=== PATIENT | female | born 1970 | race Caucasian/White ===

== ENCOUNTER 2017-01-05 17:14 | Inpatient (IN) | payer OTHER ==
[~2017-01-05] VITALS: Ht 162.5 cm; Wt 111.7 kg
--- NOTE | ~2017-01-05 | EKG ---
[place], [place] ELECTROCARDIOGRAM REPORT NAME: DOE SMITH UNIT #: [id number] ROOM: 408 DOCTOR: AMOS FAIRCHILD MD BIRTHDATE: [birth year] DOS: 01/05/2017 TIME: 1807. FINDINGS: 1. Normal sinus rhythm at rate of 83. 2. Possible old anteroseptal myocardial infarction. 3. Abnormal electrocardiogram. AMOS FAIRCHILD MD CM:EKGRPT:ELECTROCARDIOGRAM REPORT [id number] AMOS FAIRCHILD MD
[~2017-01-05 17:14] MED LIST: ACETAMINOPHEN-O1 TAB PO; ALPRAZOLAM0.5 M3 PO; BIOTENE MOIST44.3 ML PO; CIPRO500 MG PO; CLARITIN10 MG PO; COMBI V; CONSTULOSE10 GM/151 PO; FERROUS SULFAT325 MG PO; FLAGYL500 MG PO; HUMALOG MI100 UNIT/1 SC; LACTULOSE20 GM/30 M PO; LISINOPRIL20 MG PO; MICONAZOLE V; NORTRIPTYLINE H25 M1 PO; Nizoral 2%15 GM T; OXYCODONE HCL5 MG PO; PANTOPRAZOLE SO40 MG PO; PROPRANOLOL HCL10 MG PO; PROPRANOLOL HYD10 MG PO; PROTONIX40 MG PO; XANAX0.5 MG PO; XIFAXAN550 MG PO
[2017-01-05 17:20] VITALS: BP 165/100
[2017-01-05 18:18] LABS: BILIRUBIN NEGATIVE (NEGATIVE); BLOOD 3+ (NEGATIVE); CLARITY SL CLOUDY (CLEAR); COLOR YELLOW (YELLOW); GLUCOSE 3+ (NEGATIVE); KETONE NEGATIVE (NEGATIVE); LEUKO ESTERASE NEGATIVE (NEGATIVE); NITRITE NEGATIVE (NEGATIVE); PROTEIN NEGATIVE (NEGATIVE); SPECIFIC GRAVITY <= 1.005 (1.005-1.030)
[2017-01-05 18:31] LABS: BASO % 0.5 % (0.0-1.0); EOS # 0.1 10*3/uL (0.0-0.4); EOS % 2.2 % (1.0-4.0); HEMATOCRIT 43.1 % (37.0-47.0); HEMOGLOBIN 14.8 g/dl (12.0-16.0); LYMPH # 1.3 10*3/uL (1.3-4.4); LYMPH % 32.6 % (27.0-41.0); MEAN CELL VOLUME 100.9 fl (81.0-99.0); MEAN CORPUSCULAR HGB 34.7 pg (27.0-31.0); MEAN CORPUSCULAR HGB CONC 34.3 g/dl (33.0-37.0); MEAN PLATELET VOLUME 9.5 fl (9.6-12.3); MONO # 0.4 10*3/uL (0.1-1.0); MONO % 9.9 % (3.0-9.0); NEUT # 2.2 10*3/uL (2.3-7.9); NEUT % 54.3 % (47.0-73.0); PLATELET COUNT AUTOMATED 70 10*3/uL (130-400); RED BLOOD COUNT 4.27 10*6/uL (4.10-5.10); RED CELL DISTRI WIDTH 14.1 % (0-14.5); WHITE BLOOD COUNT 4.1 10*3/uL (4.8-10.8)
[2017-01-05 18:43] LABS: INTERNATIONAL NORM RATIO 1.2 (2.0-3.5); PROTHROMBIN TIME 13.2 SECONDS (9.0-12.4)
[2017-01-05 18:47] LABS: BACTERIA 1+; RBC 31-40 rbc/hpf (0-2); URINE REFLEX COMMENT YES (NO); WBC 0-2 wbc/hpf (0-5)
[2017-01-05 18:58] LABS: ALBUMIN 2.4 gm/dl (3.1-4.5); ALKALINE PHOSPHATASE 151 U/L (45-117); BILIRUBIN, TOTAL 2.2 mg/dl (0.2-1.0); BUN 4 mg/dl (7-24); C-REACTIVE PROTEIN 0.65 MG/DL (0-0.3); CARBON DIOXIDE 19 mmol/L (21-32); CHLORIDE 110 mmol/L (98-107); CPK 63 U/L (26-192); EST GLOM FILT AFRICAN AMERICAN > 60 ml/min; GLUCOSE 397 mg/dL (65-99); MAGNESIUM 1.8 mg/dL (1.5-2.1); POTASSIUM 4.3 mmol/L (3.5-5.1); SGOT/AST 36 IU/L (3-35); SGPT/ALT 24 U/L (12-78); SODIUM 139 mmol/L (136-145); TOTAL PROTEIN 6.6 gm/dL (6.4-8.2)
[2017-01-05 18:59] LABS: TROPONIN I < 0.015 ng/ml (<0.045)
[2017-01-05 19:26] VITALS: BP 144/64
[2017-01-05 19:56] VITALS: BP 146/83
[2017-01-05 20:28] LABS: LA>2 REFLEX 2 HR DRAW NOW
[2017-01-05 20:47] VITALS: BP 160/92
[2017-01-05 20:47] LABS: LA>2 RFLX FOLLOW UP AT 2 HRS 2.5 mmol/L (0.4-2.0)
[2017-01-05] MEDS ORDERED: FLUOXETINE HCL20 M2 PO (21:09)
[2017-01-05] MEDS ORDERED: LANTUS100 U/ML SC (21:11)
[2017-01-05 22:00] VITALS: BP 160/90
[2017-01-05 22:41] LABS: LA>2 REFLEX 4 HR DRAW NOW
[2017-01-06] VITALS: BP 153/86
[2017-01-06 00:20] LABS: CKMB 0.9 ng/ml (0.5-3.6); CPK 77 U/L (26-192)
[2017-01-06 00:23] LABS: TROPONIN I < 0.015 ng/ml (<0.045)
[2017-01-06 06:15] LABS: BASO % 0.8 % (0.0-1.0); EOS # 0.1 10*3/uL (0.0-0.4); HEMATOCRIT 38.8 % (37.0-47.0); HEMOGLOBIN 13.4 g/dl (12.0-16.0); LYMPH # 1.5 10*3/uL (1.3-4.4); LYMPH % 41.6 % (27.0-41.0); MEAN CELL VOLUME 101.6 fl (81.0-99.0); MEAN CORPUSCULAR HGB 35.1 pg (27.0-31.0); MEAN CORPUSCULAR HGB CONC 34.5 g/dl (33.0-37.0); MEAN PLATELET VOLUME 9.4 fl (9.6-12.3); MONO # 0.4 10*3/uL (0.1-1.0); MONO % 11.6 % (3.0-9.0); NEUT # 1.6 10*3/uL (2.3-7.9); PLATELET COUNT AUTOMATED 82 10*3/uL (130-400); RED BLOOD COUNT 3.82 10*6/uL (4.10-5.10); RED CELL DISTRI WIDTH 14.3 % (0-14.5); WHITE BLOOD COUNT 3.7 10*3/uL (4.8-10.8)
[2017-01-06 06:23] LABS: CPK 62 U/L (26-192)
[2017-01-06 06:24] LABS: TROPONIN I < 0.015 ng/ml (<0.045)
[2017-01-06 06:47] LABS: BUN 4 mg/dl (7-24); CARBON DIOXIDE 23 mmol/L (21-32); CHLORIDE 115 mmol/L (98-107); CHOLESTEROL 133 mg/dL (<200); EST GLOM FILT AFRICAN AMERICAN > 60 ml/min; GLUCOSE 144 mg/dL (65-99); HEMOGLOBIN A1c 8.3 % (4.8-5.6); INTERNATIONAL NORM RATIO 1.2 (2.0-3.5); MAGNESIUM 1.6 mg/dL (1.5-2.1); PHOSPHOROUS 1.8 mg/dL (2.5-4.9); PROTHROMBIN TIME 13.2 SECONDS (9.0-12.4); SODIUM 145 mmol/L (136-145); TRIGLYCERIDES 96 mg/dl (<150); VLDL CHOLESTEROL 19 mg/dL (6-40)
[2017-01-06 06:54] LABS: FOLIC ACID 8.03 ng/mL (>5.38)
[2017-01-06 06:57] LABS: FREE T4 0.83 ng/dl (0.76-1.46); HDL CHOLESTEROL 53 mg/dl (40-60); LDL CHOLESTEROL 61 mg/dL (9-159)
[2017-01-06 07:01] LABS: POTASSIUM 3.1 mmol/L (3.5-5.1)
[2017-01-06 08:00] VITALS: BP 154/82
[2017-01-06 12:00] VITALS: BP 156/89
[2017-01-06 12:11] LABS: CKMB 1.1 ng/ml (0.5-3.6); CPK 63 U/L (26-192); TROPONIN I < 0.015 ng/ml (<0.045)
[2017-01-06 16:00] VITALS: BP 147/83
== END 2017-01-06 17:00 | disposition home or self-care (01) | DRG 441 ==
LOC: ED 17:14 → EDHOLD 19:07 → 4E 19:07
PROVIDERS: Student in an Organized Health Care Education/Training Program
DX: K72.90 Hepatic failure, unspecified without coma (principal); E43 Unspecified severe protein-calorie malnutrition; E87.2 Acidosis; E72.20 Disorder of urea cycle metabolism, unspecified; D69.6 Thrombocytopenia, unspecified; E11.65 Type 2 diabetes mellitus with hyperglycemia; Z68.41 Body mass index [BMI] 40.0-44.9, adult; K25.9 Gastric ulcer, unspecified as acute or chronic, without hemorrhage or perforation; D75.89 Other specified diseases of blood and blood-forming organs; D72.819 Decreased white blood cell count, unspecified; K74.69 Other cirrhosis of liver; F41.9 Anxiety disorder, unspecified; K21.9 Gastro-esophageal reflux disease without esophagitis; E87.6 Hypokalemia; E83.39 Other disorders of phosphorus metabolism; E66.9 Obesity, unspecified; F17.210 Nicotine dependence, cigarettes, uncomplicated; Z83.49 Family history of other endocrine, nutritional and metabolic diseases; Z83.6 Family history of other diseases of the respiratory system; Z88.6 Allergy status to analgesic agent; Z79.899 Other long term (current) drug therapy; Z79.4 Long term (current) use of insulin

== ENCOUNTER 2017-02-09 16:33 | Inpatient (IN) | payer OTHER ==
[~2017-02-09] VITALS: Ht 162.5 cm; Wt 117.1 kg
[~2017-02-09 16:33] MED LIST changes: +FLUOXETINE HCL20 M2 PO; +LANTUS100 U/ML SC
[2017-02-09 16:36] VITALS: BP 185/90
[2017-02-09 17:16] LABS: BASO % 0.8 % (0.0-1.0); EOS # 0.1 10*3/uL (0.0-0.4); EOS % 1.5 % (1.0-4.0); HEMATOCRIT 39.3 % (37.0-47.0); HEMOGLOBIN 13.5 g/dl (12.0-16.0); LYMPH # 1.5 10*3/uL (1.3-4.4); LYMPH % 28.7 % (27.0-41.0); MEAN CELL VOLUME 101.6 fl (81.0-99.0); MEAN CORPUSCULAR HGB 34.9 pg (27.0-31.0); MEAN CORPUSCULAR HGB CONC 34.4 g/dl (33.0-37.0); MEAN PLATELET VOLUME 9.2 fl (9.6-12.3); MONO # 0.5 10*3/uL (0.1-1.0); NEUT # 3.1 10*3/uL (2.3-7.9); NEUT % 58.4 % (47.0-73.0); PLATELET COUNT AUTOMATED 107 10*3/uL (130-400); RED BLOOD COUNT 3.87 10*6/uL (4.10-5.10); RED CELL DISTRI WIDTH 14.6 % (0-14.5); WHITE BLOOD COUNT 5.3 10*3/uL (4.8-10.8)
[2017-02-09 17:31] LABS: ALBUMIN 2.4 gm/dl (3.1-4.5); ALKALINE PHOSPHATASE 154 U/L (45-117); BILIRUBIN, TOTAL 1.7 mg/dl (0.2-1.0); BUN 8 mg/dl (7-24); C-REACTIVE PROTEIN 1.11 MG/DL (0-0.3); CARBON DIOXIDE 23 mmol/L (21-32); CHLORIDE 111 mmol/L (98-107); CPK 133 U/L (26-192); EST GLOM FILT AFRICAN AMERICAN > 60 ml/min; GLUCOSE 189 mg/dL (65-99); MAGNESIUM 1.8 mg/dL (1.5-2.1); POTASSIUM 4.3 mmol/L (3.5-5.1); SGOT/AST 54 IU/L (3-35); SGPT/ALT 29 U/L (12-78); SODIUM 143 mmol/L (136-145); TOTAL PROTEIN 6.7 gm/dL (6.4-8.2)
[2017-02-09 17:32] LABS: TROPONIN I < 0.015 ng/ml (<0.045)
[2017-02-09 17:36] LABS: INTERNATIONAL NORM RATIO 1.2 (2.0-3.5); PROTHROMBIN TIME 12.5 SECONDS (9.0-12.4)
[2017-02-09 19:13] LABS: LA>2 REFLEX 2 HR DRAW NOW
[2017-02-09 19:34] LABS: LA>2 RFLX FOLLOW UP AT 2 HRS 2.1 mmol/L (0.4-2.0)
[2017-02-09 20:00] VITALS: BP 158/92
[2017-02-09 21:29] LABS: LA>2 REFLEX 4 HR DRAW NOW
[2017-02-10] VITALS: BP 159/98
[2017-02-10 06:14] LABS: BASO # 0.1 10*3/uL (0.0-0.1); BASO % 0.9 % (0.0-1.0); EOS # 0.3 10*3/uL (0.0-0.4); EOS % 3.9 % (1.0-4.0); HEMATOCRIT 35.6 % (37.0-47.0); HEMOGLOBIN 12.3 g/dl (12.0-16.0); LYMPH # 2.4 10*3/uL (1.3-4.4); LYMPH % 34.1 % (27.0-41.0); MEAN CELL VOLUME 101.4 fl (81.0-99.0); MEAN CORPUSCULAR HGB CONC 34.6 g/dl (33.0-37.0); MEAN PLATELET VOLUME 8.8 fl (9.6-12.3); MONO # 0.9 10*3/uL (0.1-1.0); MONO % 12.8 % (3.0-9.0); NEUT # 3.3 10*3/uL (2.3-7.9); NEUT % 47.9 % (47.0-73.0); PLATELET COUNT AUTOMATED 113 10*3/uL (130-400); RED BLOOD COUNT 3.51 10*6/uL (4.10-5.10); RED CELL DISTRI WIDTH 14.7 % (0-14.5)
[2017-02-10 06:37] LABS: BUN 7 mg/dl (7-24); CARBON DIOXIDE 25 mmol/L (21-32); CHLORIDE 118 mmol/L (98-107); EST GLOM FILT AFRICAN AMERICAN > 60 ml/min; GLUCOSE 72 mg/dL (65-99); MAGNESIUM 1.6 mg/dL (1.5-2.1); SODIUM 147 mmol/L (136-145)
[2017-02-10 08:00] VITALS: BP 151/85
[2017-02-10 12:00] VITALS: BP 156/98
[2017-02-10 17:02] VITALS: BP 136/67
[2017-02-10 20:36] VITALS: BP 144/72
[2017-02-11] VITALS: BP 130/62
[2017-02-11 06:17] LABS: BASO # 0.1 10*3/uL (0.0-0.1); BASO % 0.6 % (0.0-1.0); EOS # 0.3 10*3/uL (0.0-0.4); HEMATOCRIT 38.3 % (37.0-47.0); LYMPH # 3.2 10*3/uL (1.3-4.4); LYMPH % 37.5 % (27.0-41.0); MEAN CELL VOLUME 102.7 fl (81.0-99.0); MEAN CORPUSCULAR HGB 34.9 pg (27.0-31.0); MEAN CORPUSCULAR HGB CONC 33.9 g/dl (33.0-37.0); MEAN PLATELET VOLUME 8.8 fl (9.6-12.3); MONO % 11.3 % (3.0-9.0); NEUT # 3.9 10*3/uL (2.3-7.9); NEUT % 46.1 % (47.0-73.0); PLATELET COUNT AUTOMATED 124 10*3/uL (130-400); RED BLOOD COUNT 3.73 10*6/uL (4.10-5.10); RED CELL DISTRI WIDTH 15.2 % (0-14.5); WHITE BLOOD COUNT 8.4 10*3/uL (4.8-10.8)
[2017-02-11 06:25] LABS: ALBUMIN 2.3 gm/dl (3.1-4.5); ALKALINE PHOSPHATASE 139 U/L (45-117); BILIRUBIN, TOTAL 1.7 mg/dl (0.2-1.0); BUN 10 mg/dl (7-24); CARBON DIOXIDE 23 mmol/L (21-32); CHLORIDE 115 mmol/L (98-107); EST GLOM FILT AFRICAN AMERICAN > 60 ml/min; GLUCOSE 55 mg/dL (65-99); POTASSIUM 2.8 mmol/L (3.5-5.1); SGOT/AST 40 IU/L (3-35); SGPT/ALT 26 U/L (12-78); SODIUM 145 mmol/L (136-145); TOTAL PROTEIN 6.7 gm/dL (6.4-8.2)
[2017-02-11 08:00] VITALS: BP 144/80
[2017-02-11 11:42] LABS: BILIRUBIN NEGATIVE (NEGATIVE); BLOOD 3+ (NEGATIVE); CLARITY CLEAR (CLEAR); COLOR YELLOW (YELLOW); GLUCOSE TRACE (NEGATIVE); KETONE TRACE (NEGATIVE); LEUKO ESTERASE NEGATIVE (NEGATIVE); NITRITE NEGATIVE (NEGATIVE); PH 5.5 (5.0-9.0); PROTEIN 1+ (NEGATIVE); SPECIFIC GRAVITY 1.025 (1.005-1.030); UROBILINOGEN 0.2 E.U./dl (0.2-1.0)
[2017-02-11 12:00] VITALS: BP 149/88
[2017-02-11 12:03] LABS: BACTERIA 1+; RBC TNTC rbc/hpf (0-2); URINE REFLEX COMMENT YES (NO); WBC 0-2 wbc/hpf (0-5)
[2017-02-11 16:00] VITALS: BP 148/93
== END 2017-02-11 17:31 | disposition home or self-care (01) | DRG 441 ==
LOC: ED 16:33 → 5E 18:02 → EDHOLD 18:02 → 5E 19:28
PROVIDERS: Emergency Medicine; Internal Medicine
DX: K72.90 Hepatic failure, unspecified without coma (principal); E43 Unspecified severe protein-calorie malnutrition; E87.2 Acidosis; E87.0 Hyperosmolality and hypernatremia; D69.6 Thrombocytopenia, unspecified; K76.6 Portal hypertension; E11.65 Type 2 diabetes mellitus with hyperglycemia; Z68.41 Body mass index [BMI] 40.0-44.9, adult; K74.69 Other cirrhosis of liver; E66.01 Morbid (severe) obesity due to excess calories; E83.39 Other disorders of phosphorus metabolism; F41.9 Anxiety disorder, unspecified; K21.9 Gastro-esophageal reflux disease without esophagitis; Z87.442 Personal history of urinary calculi; F17.210 Nicotine dependence, cigarettes, uncomplicated; Z88.8 Allergy status to other drugs, medicaments and biological substances; D75.89 Other specified diseases of blood and blood-forming organs; R74.0 Nonspecific elevation of levels of transaminase and lactic acid dehydrogenase [LDH]; R79.82 Elevated C-reactive protein (CRP)

== ENCOUNTER 2017-04-05 21:54 | Inpatient (IN) | payer OTHER ==
[~2017-04-05] VITALS: Ht 162.6 cm; Wt 110.5 kg
[2017-04-05 22:04] VITALS: BP 137/74
[2017-04-05 22:44] LABS: BASO % 0.7 % (0.0-1.0); EOS # 0.1 10*3/uL (0.0-0.4); EOS % 2.6 % (1.0-4.0); HEMATOCRIT 40.9 % (37.0-47.0); HEMOGLOBIN 13.8 g/dl (12.0-16.0); LYMPH # 1.5 10*3/uL (1.3-4.4); LYMPH % 34.8 % (27.0-41.0); MEAN CELL VOLUME 101.2 fl (81.0-99.0); MEAN CORPUSCULAR HGB 34.2 pg (27.0-31.0); MEAN CORPUSCULAR HGB CONC 33.7 g/dl (33.0-37.0); MEAN PLATELET VOLUME 8.9 fl (9.6-12.3); MONO # 0.5 10*3/uL (0.1-1.0); MONO % 12.4 % (3.0-9.0); NEUT # 2.1 10*3/uL (2.3-7.9); NEUT % 49.3 % (47.0-73.0); PLATELET COUNT AUTOMATED 81 10*3/uL (130-400); RED BLOOD COUNT 4.04 10*6/uL (4.10-5.10); RED CELL DISTRI WIDTH 13.7 % (0-14.5); WHITE BLOOD COUNT 4.2 10*3/uL (4.8-10.8)
[2017-04-05 22:57] LABS: BUN 6 mg/dl (7-24); CARBON DIOXIDE 22 mmol/L (21-32); CHLORIDE 111 mmol/L (98-107); EST GLOM FILT AFRICAN AMERICAN > 60 ml/min; GLUCOSE 186 mg/dL (65-99); POTASSIUM 3.5 mmol/L (3.5-5.1); SODIUM 141 mmol/L (136-145)
[2017-04-05 22:58] LABS: C-REACTIVE PROTEIN 0.68 MG/DL (0-0.3)
[2017-04-05 23:01] VITALS: BP 140/57
[2017-04-05 23:10] LABS: BILIRUBIN NEGATIVE (NEGATIVE); BLOOD TRACE-LYSED (NEGATIVE); CLARITY CLEAR (CLEAR); COLOR YELLOW (YELLOW); GLUCOSE 3+ (NEGATIVE); KETONE NEGATIVE (NEGATIVE); LEUKO ESTERASE NEGATIVE (NEGATIVE); NITRITE NEGATIVE (NEGATIVE); PROTEIN NEGATIVE (NEGATIVE)
[2017-04-05 23:21] LABS: BACTERIA 4+; EPITHELIAL CELLS 15-20; RBC 0-2 rbc/hpf (0-2); URINE REFLEX COMMENT YES (NO)
[2017-04-06] VITALS (8 sets, daily range): BP systolic 124–166; BP diastolic 63–99
[2017-04-06 06:09] LABS: ALKALINE PHOSPHATASE 120 U/L (45-117); BILIRUBIN, TOTAL 2.2 mg/dl (0.2-1.0); BUN 5 mg/dl (7-24); CARBON DIOXIDE 22 mmol/L (21-32); CHLORIDE 114 mmol/L (98-107); CHOLESTEROL 133 mg/dL (<200); EST GLOM FILT AFRICAN AMERICAN > 60 ml/min; GLUCOSE 121 mg/dL (65-99); HDL CHOLESTEROL 54 mg/dl (40-60); LDL CHOLESTEROL 64 mg/dL (9-159); MAGNESIUM 1.4 mg/dL (1.5-2.1); POTASSIUM 3.2 mmol/L (3.5-5.1); SGOT/AST 29 IU/L (3-35); SGPT/ALT 21 U/L (12-78); SODIUM 145 mmol/L (136-145); TOTAL PROTEIN 5.9 gm/dL (6.4-8.2); TRIGLYCERIDES 76 mg/dl (<150); VLDL CHOLESTEROL 15 mg/dL (6-40)
[2017-04-06 06:10] LABS: BASO % 0.3 % (0.0-1.0); EOS # 0.1 10*3/uL (0.0-0.4); EOS % 4.3 % (1.0-4.0); HEMATOCRIT 36.1 % (37.0-47.0); HEMOGLOBIN 12.2 g/dl (12.0-16.0); LYMPH # 1.4 10*3/uL (1.3-4.4); LYMPH % 42.4 % (27.0-41.0); MEAN CELL VOLUME 100.6 fl (81.0-99.0); MEAN CORPUSCULAR HGB CONC 33.8 g/dl (33.0-37.0); MEAN PLATELET VOLUME 9.5 fl (9.6-12.3); MONO # 0.4 10*3/uL (0.1-1.0); MONO % 10.8 % (3.0-9.0); NEUT # 1.4 10*3/uL (2.3-7.9); NEUT % 42.2 % (47.0-73.0); PLATELET COUNT AUTOMATED 74 10*3/uL (130-400); RED BLOOD COUNT 3.59 10*6/uL (4.10-5.10); RED CELL DISTRI WIDTH 13.5 % (0-14.5); WHITE BLOOD COUNT 3.2 10*3/uL (4.8-10.8)
[2017-04-06 06:11] LABS: FREE T4 0.95 ng/dl (0.76-1.46)
[2017-04-06 06:11] LABS: HEMOGLOBIN A1c 7.7 % (4.8-5.6)
[2017-04-06 06:29] LABS: INTERNATIONAL NORM RATIO 1.4 (2.0-3.5); PROTHROMBIN TIME 14.8 SECONDS (9.0-12.4)
[2017-04-06 07:02] LABS: FOLIC ACID 5.8 ng/mL (>5.38); VITAMIN D, 25-HYDROXY 11.4 ng/mL (30-100)
[2017-04-06] MEDS ORDERED: OXYCODONE HCL5 MG PO (11:55)
[2017-04-06] MEDS ORDERED: LASIX40 MG PO (11:55)
[2017-04-06] MEDS ORDERED: SPIRONOLACTONE50 M1 PO (11:56)
[2017-04-07] VITALS: BP 123/75
[2017-04-07 06:25] LABS: BASO % 0.6 % (0.0-1.0); EOS # 0.2 10*3/uL (0.0-0.4); EOS % 5.3 % (1.0-4.0); HEMATOCRIT 35.4 % (37.0-47.0); HEMOGLOBIN 11.7 g/dl (12.0-16.0); LYMPH # 1.3 10*3/uL (1.3-4.4); MEAN CELL VOLUME 101.7 fl (81.0-99.0); MEAN CORPUSCULAR HGB 33.6 pg (27.0-31.0); MEAN CORPUSCULAR HGB CONC 33.1 g/dl (33.0-37.0); MEAN PLATELET VOLUME 9.9 fl (9.6-12.3); MONO # 0.4 10*3/uL (0.1-1.0); NEUT # 1.4 10*3/uL (2.3-7.9); NEUT % 41.8 % (47.0-73.0); PLATELET COUNT AUTOMATED 72 10*3/uL (130-400); RED BLOOD COUNT 3.48 10*6/uL (4.10-5.10); RED CELL DISTRI WIDTH 14.2 % (0-14.5); WHITE BLOOD COUNT 3.2 10*3/uL (4.8-10.8)
[2017-04-07 06:44] LABS: BUN 9 mg/dl (7-24); CARBON DIOXIDE 23 mmol/L (21-32); CHLORIDE 111 mmol/L (98-107); EST GLOM FILT AFRICAN AMERICAN > 60 ml/min; GLUCOSE 230 mg/dL (65-99); POTASSIUM 3.6 mmol/L (3.5-5.1); SODIUM 143 mmol/L (136-145)
[2017-04-07 06:53] LABS: INTERNATIONAL NORM RATIO 1.3 (2.0-3.5); PROTHROMBIN TIME 14.3 SECONDS (9.0-12.4)
[2017-04-07 08:00] VITALS: BP 134/70
[2017-04-07] MEDS ORDERED: LACTULOSE20 GM/30 M PO (11:24)
[2017-04-07 12:00] VITALS: BP 155/95
== END 2017-04-07 14:17 | disposition home or self-care (01) | DRG 441 ==
LOC: ED 21:54 → 5E 04-06 00:02
PROVIDERS: Emergency Medicine Emergency Medical Services; Internal Medicine; Internal Medicine Hospice and Palliative Medicine
DX: K72.00 Acute and subacute hepatic failure without coma (principal); E43 Unspecified severe protein-calorie malnutrition; D61.818 Other pancytopenia; D69.6 Thrombocytopenia, unspecified; E72.20 Disorder of urea cycle metabolism, unspecified; K76.6 Portal hypertension; E11.65 Type 2 diabetes mellitus with hyperglycemia; Z68.41 Body mass index [BMI] 40.0-44.9, adult; E83.42 Hypomagnesemia; E66.01 Morbid (severe) obesity due to excess calories; K74.69 Other cirrhosis of liver; K21.9 Gastro-esophageal reflux disease without esophagitis; F17.200 Nicotine dependence, unspecified, uncomplicated; D75.89 Other specified diseases of blood and blood-forming organs; F41.1 Generalized anxiety disorder; E87.6 Hypokalemia; E83.39 Other disorders of phosphorus metabolism; Z90.49 Acquired absence of other specified parts of digestive tract; Z88.6 Allergy status to analgesic agent; Z83.79 Family history of other diseases of the digestive system; Z79.4 Long term (current) use of insulin; Z79.899 Other long term (current) drug therapy; Z79.1 Long term (current) use of non-steroidal anti-inflammatories (NSAID)

== ENCOUNTER 2017-08-07 15:01 | Inpatient (IN) | payer OTHER ==
[~2017-08-07] VITALS: Ht 165.1 cm; Wt 103.1 kg
[~2017-08-07 15:01] MED LIST changes: +LASIX40 MG PO; +SPIRONOLACTONE50 M1 PO
[2017-08-07 15:07] VITALS: BP 146/80
[2017-08-07 15:36] VITALS: BP 171/72
[2017-08-07 15:37] LABS: BILIRUBIN NEGATIVE (NEGATIVE); BLOOD TRACE-INTACT (NEGATIVE); CLARITY CLEAR (CLEAR); COLOR YELLOW (YELLOW); GLUCOSE 3+ (NEGATIVE); KETONE 1+ (NEGATIVE); LEUKO ESTERASE NEGATIVE (NEGATIVE); NITRITE NEGATIVE (NEGATIVE); PH 6.5 (5.0-9.0); SPECIFIC GRAVITY 1.015 (1.005-1.030); UROBILINOGEN >= 8.0 E.U./dl (0.2-1.0)
[2017-08-07 16:20] LABS: BASO # 0.1 10*3/uL (0.0-0.1); BASO % 1.6 % (0.0-1.0); EOS # 0.2 10*3/uL (0.0-0.4); EOS % 3.6 % (1.0-4.0); HEMATOCRIT 41.5 % (37.0-47.0); HEMOGLOBIN 14.2 g/dl (12.0-16.0); LYMPH # 1.7 10*3/uL (1.3-4.4); MEAN CORPUSCULAR HGB 34.9 pg (27.0-31.0); MEAN CORPUSCULAR HGB CONC 34.2 g/dl (33.0-37.0); MEAN PLATELET VOLUME 9.7 fl (9.6-12.3); MONO # 0.5 10*3/uL (0.1-1.0); MONO % 10.5 % (3.0-9.0); NEUT # 2.5 10*3/uL (2.3-7.9); NEUT % 50.1 % (47.0-73.0); PLATELET COUNT AUTOMATED 115 10*3/uL (130-400); RED BLOOD COUNT 4.07 10*6/uL (4.10-5.10); RED CELL DISTRI WIDTH 15.3 % (0-14.5)
[2017-08-07 16:28] LABS: ACT PARTIAL THROMBO TIME 23.4 SECONDS (20.8-31.5); INTERNATIONAL NORM RATIO 1.2 (2.0-3.5)
[2017-08-07] MEDS ORDERED: NORTRIPTYLINE H25 M1 PO (16:32)
[2017-08-07] MEDS ORDERED: GOOD NEIGHBOR L10 MG PO (16:33)
[2017-08-07 16:37] VITALS: BP 162/90
[2017-08-07 16:37] LABS: ALBUMIN 2.7 gm/dl (3.1-4.5); BUN 9 mg/dl (7-24); CHLORIDE 113 mmol/L (98-107); CREATININE 0.64 mg/dL (0.55-1.02); POTASSIUM 4.4 mmol/L (3.5-5.1); SGOT/AST 45 IU/L (3-35); SGPT/ALT 37 U/L (12-78); SODIUM 143 mmol/L (136-145); TOTAL PROTEIN 8.1 gm/dL (6.4-8.2)
--- NOTE | 2017-08-07 16:38 | NUR ---
MEDICATIONS WERE VERIFIED THROUGH PT'S PHARMACY
--- NOTE | 2017-08-07 16:38 | NUR ---
REMAINS DISORIENTED TO PLACE AND TIME. REMAINS LETHARGIC
[2017-08-07 16:42] LABS: ALKALINE PHOSPHATASE 188 U/L (45-117)
--- NOTE | 2017-08-07 17:04 | NUR ---
MEDS WERE VERIFIED BY EDIE THROUGH PATIENT'S PHARMACY. NO CHANGES MADE
--- NOTE | 2017-08-07 17:15 | NUR ---
A 47, admitted to , under the services of LAURO Zuleta DO with a diagnosis of MET ENCEPHALOPATHY. Chief complaint is CHANGE IN MENTAL STATUS FROM NORMAL AFTER STAYING WITH HER MOTHER FOR THE LAST 2 DAYS. Patient arrived via stretcher from ER. Monitor applied. Initial assessment completed. Vital signs taken and recorded. LAURO ZULETA DO notified of admission to the unit. Orders received. See assessment for past medical history, medications and allergies. Patient and/or family oriented to unit. [facility]. Clothing/patient valuable form completed. IV TO RH SECURE AT PRESENT SAMUEL RIDDLE
[2017-08-07 17:24] LABS: URINE AMPHETAMINES < 1000 (1000ng/ml); URINE BARBITURATES < 200 (200ng/ml); URINE BENZODIAZEPINES < 200 (200ng/ml); URINE CANNABINOIDS (THC) < 50 (50ng/ml); URINE COCAINE < 300 (300ng/ml); URINE METHADONE < 300 (300ng/ml); URINE OPIATES < 300 (300ng/ml)
--- NOTE | 2017-08-07 17:24 | NUR ---
DR MARMOLEJO HERE - PT ASSESSED
[2017-08-07 17:27] LABS: URINE PHENCYCLIDINE < 25 (25ng/ml)
--- NOTE | 2017-08-07 18:00 | NUR ---
DR LAMAR NOTIFIED OF NEGATIVE URINE DRUG SCREEN & SAB TO RT HIP/OUTER FOLD
--- NOTE | 2017-08-07 18:19 | NUR ---
PT C/O STOMACH PAINS & NEEDING TO GO TO THE BATHROOM. ASSISTED TO BSC WITH 1 ASSIST. UNSTEADY. PASSED GAS BUT UNABLE TOP MOVE BOWELS.
--- NOTE | 2017-08-07 18:28 | NUR ---
PER THE MOTHER THE PATIENT STARTED GETTING AGGITATED AND WAS CONFUSED. THEY FOUND HER IN THE BATHROOM UNSURE OF WHERE SHE WAS & THEN THE PATIENT WENT INTO ANOTHER ROOM AND PEED ON THE FLOOR. THE MOTHER THINKS SHE WAS TAKING HER MEDS BUT SHE GAVE HER SOME (NOT SURE HOW MUCH) LAST NIGHT & THEN AGAIN THIS AM THEN DROVE HER TO HER BECAUSE SHE DOESN'T LIKE THE HOSPITAL CLOSEST TO HER THEY DON'T TREAT HER THE WAY WE DO.
--- NOTE | 2017-08-07 22:24 | NUR ---
PRN ZOFRAN GIVEN TO PT. FOR C/O STOMACH DISCOMFORT AND NAUSEA, WILL MONITOR EFFECT.
[2017-08-08] VITALS: BP 158/76
--- NOTE | 2017-08-08 06:04 | NUR ---
CALLED ON NEW ONSET OF BRIGHT RED BLOOD IN STOOL. ORDERES ARE A FECAL OCCULT SAMPLE. WILL ORDER
[2017-08-08 06:31] LABS: BASO # 0.1 10*3/uL (0.0-0.1); BASO % 1.3 % (0.0-1.0); EOS # 0.3 10*3/uL (0.0-0.4); EOS % 4.9 % (1.0-4.0); HEMATOCRIT 40.4 % (37.0-47.0); HEMOGLOBIN 13.7 g/dl (12.0-16.0); LYMPH % 32.3 % (27.0-41.0); MEAN CELL VOLUME 103.3 fl (81.0-99.0); MEAN CORPUSCULAR HGB CONC 33.9 g/dl (33.0-37.0); MEAN PLATELET VOLUME 9.4 fl (9.6-12.3); MONO # 0.6 10*3/uL (0.1-1.0); MONO % 9.7 % (3.0-9.0); NEUT # 3.1 10*3/uL (2.3-7.9); NEUT % 51.3 % (47.0-73.0); PLATELET COUNT AUTOMATED 128 10*3/uL (130-400); RED BLOOD COUNT 3.91 10*6/uL (4.10-5.10); RED CELL DISTRI WIDTH 15.1 % (0-14.5); WHITE BLOOD COUNT 6.1 10*3/uL (4.8-10.8)
[2017-08-08 07:02] LABS: ALBUMIN 2.2 gm/dl (3.1-4.5); BUN 11 mg/dl (7-24); CHLORIDE 111 mmol/L (98-107); CHOLESTEROL 155 mg/dL (<200); CREATININE 0.66 mg/dL (0.55-1.02); HDL CHOLESTEROL 55 mg/dl (40-60); LDL CHOLESTEROL 80 mg/dL (9-159); PHOSPHOROUS 2.7 mg/dL (2.5-4.9); SGOT/AST 29 IU/L (3-35); SGPT/ALT 28 U/L (12-78); TOTAL PROTEIN 6.6 gm/dL (6.4-8.2); TRIGLYCERIDES 98 mg/dl (<150); VLDL CHOLESTEROL 20 mg/dL (6-40)
[2017-08-08 07:08] LABS: ALKALINE PHOSPHATASE 148 U/L (45-117); FREE T4 1.16 ng/dl (0.76-1.46); SODIUM 142 mmol/L (136-145)
[2017-08-08 07:09] LABS: POTASSIUM 3.4 mmol/L (3.5-5.1)
[2017-08-08 07:38] LABS: VITAMIN D, 25-HYDROXY 9.4 ng/mL (30-100)
[2017-08-08 08:00] VITALS: BP 126/68
--- NOTE | 2017-08-08 08:00 | NUR ---
HOB ELEVATED, EASY RESPIRATIONS WITH SKIN W/D, MILDLY JAUNDICED WITH ICTERIC SCLERA. ABDOMEN SOFT, OBESE & TENDER TO PALPATION. PT APPEARS ORIENTED AT THIS TIME. ANSWERS ALL ASSESSMENT QUESTIONS APPROPRIATELY. DR PALACIOS NOTIFIED THAT PT IS REQUESTING SOMETHING FOR "ABDOMINAL PAIN" BED ALARM FOR PT SAFETY. SEE SHIFT ASSESSMENT.
--- NOTE | 2017-08-08 08:45 | NUR ---
DR LUNA IN TO SEE PT.
[2017-08-08 12:00] VITALS: BP 122/66
[2017-08-08] MEDS ORDERED: VITAMIN D5000 UNIT PO (13:47)
[2017-08-08] MEDS ORDERED: NATURE'S BLEND F1 MG PO (13:47)
--- NOTE | 2017-08-08 14:50 | NUR ---
PATIENT TAKEN OUT VIA WHEEL CHAIR WITH BELONGINGS IN CARE OF
== END 2017-08-08 14:53 | disposition home or self-care (01) | DRG 441 ==
LOC: ED 15:01 → EDHOLD 16:57 → 4E 16:59
PROVIDERS: Internal Medicine; Student in an Organized Health Care Education/Training Program; ADMIT Internal Medicine
DX: K72.90 Hepatic failure, unspecified without coma (principal); E43 Unspecified severe protein-calorie malnutrition; K76.6 Portal hypertension; B18.1 Chronic viral hepatitis B without delta-agent; K21.9 Gastro-esophageal reflux disease without esophagitis; K74.60 Unspecified cirrhosis of liver; E11.65 Type 2 diabetes mellitus with hyperglycemia; E55.9 Vitamin D deficiency, unspecified; I10 Essential (primary) hypertension; E53.8 Deficiency of other specified B group vitamins; R19.5 Other fecal abnormalities; E66.9 Obesity, unspecified; K57.90 Diverticulosis of intestine, part unspecified, without perforation or abscess without bleeding; F41.1 Generalized anxiety disorder; Z84.89 Family history of other specified conditions; Z83.79 Family history of other diseases of the digestive system; Z79.4 Long term (current) use of insulin; Z90.49 Acquired absence of other specified parts of digestive tract; Z88.8 Allergy status to other drugs, medicaments and biological substances; Z79.899 Other long term (current) drug therapy; Z72.0 Tobacco use; Z68.37 Body mass index [BMI] 37.0-37.9, adult